=== PATIENT | male | born 1935 | race Caucasian/White ===

== ENCOUNTER 2016-07-27 07:45 | Emergency (ER) | payer MEDICARE, BC ==
[~2016-07-27] VITALS: Ht 180.3 cm; Wt 76.0 kg
[~2016-07-27 07:45] MED LIST: ALLE24TA PO; ASPI81; FISH1000; GARL500C2 PO; GLUC10TA3 PO; GLUC750T22 PO; LOSA25 PO; NIAC500T5 PO; PRED50 PO; TAB-TAB; ZOVI800T13 PO; [UNRECOGNIZED DRUG - CODE] PO
[2016-07-27 07:52] VITALS: BP 115/66; PULSE 82; RESP 18; TEMP 97.9; O2SAT 98
[2016-07-27] MEDS ORDERED: GLIP5TAB8 PO (08:06)
[2016-07-27] MEDS ORDERED: LOSA25TA PO (08:06)
[2016-07-27] MEDS ORDERED: SPIRCAP INH (08:06)
[2016-07-27] MEDS ORDERED: GLIP10TA6 PO (08:06)
[2016-07-27] MEDS ORDERED: SYMB80AE INH (08:07)
[2016-07-27] MEDS ORDERED: NIAC50TA4 PO (08:08)
[2016-07-27] MEDS ORDERED: SODIUM CHLORIDE 0.9% FLUSH 5 ML FLUSH IVF PRN (08:15)
[2016-07-27] MEDS ORDERED: methylPREDNISolone SOD SUCC 125 MG/2 ML VIAL IVP ONE (08:15)
--- NOTE | 2016-07-27 08:18 | PD ---
HPI Chief Complaint: Respiratory Symptoms Time Seen by Provider: 08:08 Travel History International Travel<30 days: No Contact w/Intl Traveler<30days: No Traveled to known affect area: No History of Present Illness HPI 81yo M with PMH of COPD presents to the ED with c/o productive cough for 2 days. States he felt sob since last night and it feels like his COPD. Pt states he normally gets better with some steroids and treatments. Denies any intubation in the past. Denies any fever, chest pain, n/v, abdominal pain, weakness or numbness. Pt takes symbicort and spiriva and does pulmonary rehab. Former cig smoker. PFSH Past Medical History Asthma: Yes Heart Rhythm Problems: Yes Cardiovascular Problems: Yes ([place]) COPD: Yes Diabetes: Yes Patient Takes Glucophage: No Diminished Hearing: No Hypertension: Yes Respiratory: Yes (CHRONIC BRONCHITIS) Immunizations Current: Yes Myocardial Infarction: Yes (1973) Past Surgical History Appendectomy: Yes Other Surgery: Yes (RT THUMB TRIGGER FINGER REPAIR) Social History Alcohol Use: No Tobacco Use: No (QUIT 8 YEARS AGO) Substance Use: No Allergies-Medications (Allergen,Severity, Reaction): Coded Allergies: Penicillin (Verified Allergy, Severe, swelling , 07/27/16) Reported Meds & Prescriptions Reported Meds & Active Scripts Active Reported Niacin 50 Mg Tab 50 Mg PO DAILY Symbicort Inh (Budesonide/Formoterol Fumarate) 80-4.5 Mcg/Act Aero 2 Puff INH Q12HR Spiriva Handihaler (Tiotropium Inh) 18 Mcg Cap 18 Mcg INH DAILY 1 capsule = 18 mcg Losartan (Losartan Potassium) 25 Mg Tab 12.5 Mg PO DAILY Glipizide 10 Mg Tab 10 Mg PO DAILY Take 30 minutes before a meal Glipizide 5 Mg Tab 5 Mg PO HS Take 30 minutes before a meal Review of Systems Except as stated in HPI: all other systems reviewed are Neg Physical Exam Narrative GENERAL: 81yo M not in distress. SKIN: Warm and dry. HEAD: Atraumatic. Normocephalic. EYES: Pupils equal and round. No scleral icterus. No injection or drainage. ENT: No nasal bleeding or discharge. Mucous membranes pink and moist. NECK: Trachea midline. No JVD. CARDIOVASCULAR: Regular rate and rhythm. No murmur appreciated. RESPIRATORY: No accessory muscle use. Expiratory wheezing bilaterally. Speaking in complete sentences. GASTROINTESTINAL: Abdomen soft, non-tender, nondistended. Hepatic and splenic margins not palpable. MUSCULOSKELETAL: No obvious deformities. No clubbing. No cyanosis. No edema. No calf tenderness. NEUROLOGICAL: Awake and alert. No obvious cranial nerve deficits. Motor grossly within normal limits. Normal speech. PSYCHIATRIC: Appropriate mood and affect; insight and judgment normal. Data Data Last Documented VS Vital Signs Date Time Temp Pulse Resp B/P Pulse Ox O2 Delivery O2 Flow Rate FiO2 07/27/16 09:36 98 07/27/16 08:25 Room Air 07/27/16 07:52 97.9 82 18 115/66 Orders Complete Blood Count With Diff (07/27/16 08:13) Basic Metabolic Panel (Bmp) (07/27/16 08:13) Magnesium (Mg) (07/27/16 08:13) Troponin I (07/27/16 08:13) Iv Access Insert/Monitor (07/27/16 08:13) Electrocardiogram (07/27/16 08:13) Ecg Monitoring (07/27/16 08:13) Oximetry (07/27/16 08:13) Oxygen Administration (07/27/16 08:13) Chest, Single Ap (07/27/16 08:13) Sodium Chloride 0.9% Flush (Ns Flush) (07/27/16 08:15) Methylprednisolone So Succ Inj (Solumedr (07/27/16 08:15) Albuterol-Ipratropium Neb (Duoneb Neb) (07/27/16 08:15) Levofloxacin 750 Mg Premix Inj (Levaquin (07/27/16 09:45) Labs Laboratory Tests Test 07/27/16 08:26 White Blood Count 6.8 TH/MM3 Red Blood Count 3.84 MIL/MM3 Hemoglobin 12.1 GM/DL Hematocrit 35.7 % Mean Corpuscular Volume 93.0 FL Mean Corpuscular Hemoglobin 31.4 PG Mean Corpuscular Hemoglobin 33.7 % Concent Red Cell Distribution Width 13.6 % Platelet Count 167 TH/MM3 Mean Platelet Volume 7.6 FL Neutrophils (%) (Auto) 82.8 % Lymphocytes (%) (Auto) 9.3 % Monocytes (%) (Auto) 5.5 % Eosinophils (%) (Auto) 0.2 % Basophils (%) (Auto) 2.2 % Neutrophils # (Auto) 5.7 TH/MM3 Lymphocytes # (Auto) 0.6 TH/MM3 Monocytes # (Auto) 0.4 TH/MM3 Eosinophils # (Auto) 0.0 TH/MM3 Basophils # (Auto) 0.1 TH/MM3 CBC Comment DIFF FINAL Differential Comment Sodium Level 141 MEQ/L Potassium Level 4.0 MEQ/L Chloride Level 102 MEQ/L Carbon Dioxide Level 28.9 MEQ/L Anion Gap 10 MEQ/L Blood Urea Nitrogen 20 MG/DL Creatinine 1.10 MG/DL Estimat Glomerular Filtration 64 ML/MIN Rate Random Glucose 224 MG/DL Calcium Level 8.7 MG/DL Magnesium Level 1.9 MG/DL Troponin I LESS THAN 0.02 NG/ML MDM Medical Decision Making Medical Screen Exam Complete: Yes Emergency Medical Condition: Yes Interpretation(s) EKG: NSR 95bpm. Poor baseline. RBBB. Low voltage. Laboratory Tests Test 07/27/16 08:26 White Blood Count 6.8 TH/MM3 (4.0-11.0) Red Blood Count 3.84 MIL/MM3 (4.50-5.90) Hemoglobin 12.1 GM/DL (13.0-17.0) Hematocrit 35.7 % (39.0-51.0) Mean Corpuscular Volume 93.0 FL (80.0-100.0) Mean Corpuscular Hemoglobin 31.4 PG (27.0-34.0) Mean Corpuscular Hemoglobin 33.7 % Concent (32.0-36.0) Red Cell Distribution Width 13.6 % (11.6-17.2) Platelet Count 167 TH/MM3 (150-450) Mean Platelet Volume 7.6 FL (7.0-11.0) Neutrophils (%) (Auto) 82.8 % (16.0-70.0) Lymphocytes (%) (Auto) 9.3 % (9.0-44.0) Monocytes (%) (Auto) 5.5 % (0.0-8.0) Eosinophils (%) (Auto) 0.2 % (0.0-4.0) Basophils (%) (Auto) 2.2 % (0.0-2.0) Neutrophils # (Auto) 5.7 TH/MM3 (1.8-7.7) Lymphocytes # (Auto) 0.6 TH/MM3 (1.0-4.8) Monocytes # (Auto) 0.4 TH/MM3 (0-0.9) Eosinophils # (Auto) 0.0 TH/MM3 (0-0.4) Basophils # (Auto) 0.1 TH/MM3 (0-0.2) CBC Comment DIFF FINAL Differential Comment Sodium Level 141 MEQ/L (136-145) Potassium Level 4.0 MEQ/L (3.5-5.1) Chloride Level 102 MEQ/L (98-107) Carbon Dioxide Level 28.9 MEQ/L (21.0-32.0) Anion Gap 10 MEQ/L (5-15) Blood Urea Nitrogen 20 MG/DL (7-18) Creatinine 1.10 MG/DL (0.60-1.30) Estimat Glomerular Filtration 64 ML/MIN (>89) Rate Random Glucose 224 MG/DL (74-106) Calcium Level 8.7 MG/DL (8.5-10.1) Magnesium Level 1.9 MG/DL (1.5-2.5) Troponin I LESS THAN 0.02 NG/ML (0.02-0.05) Last Impressions Chest X-Ray 07/27/16 0813 Signed Impressions: Service Date/Time: Wednesday, July 27, 2016 08:21 - CONCLUSION: Mild left base consolidation. Gerardo Olivia MD Differential Diagnosis COPD exacerbation vs. Pneumonia vs. Bronchitis vs. atypical ACS Narrative Course 81yo M well appearing here with sob that feels like his COPD. Pt with end expiratory wheezing but speaking incomplete sentences. Labs reviewed, no leukocytosis. H/H low at 12.1/35.7, similar to 3 years ago. Troponin negative. Glucose elevated at 224. No increased anion gap. Normal CO2. BUN mildly elevated. CXR showed mild right base consolidation. Pt given levafloxacin 750mg IV. Pt also give duonebs x3 and methylprednisolone 125mg IV. Pt reevaluated at bedside and states that sob has resolved. Pt is speaking in complete sentences with no retractions. Saturating at 98% on RA. Pt wants to try outpatient treatment with antibiotics first and will call his PMD to follow up. Strict return precautions given. Diagnosis Primary Impression: Community acquired pneumonia Patient Instructions: General Instructions Departure Forms: Tests/Procedures Additional Instructions: Please follow up with your PMD in 1-2 days. Return to the ED if you have any chest pain, sob, fever, vomiting or any other concerning symptoms. Med/Other Pt SpecificInfo: Prescription(s) given Scripts Albuterol 18 GM Inh (Ventolin Hfa 18 GM Inh)90 Mcg/Act Aer2 Puff INH Q4H PRN ( SHORTNESS OF BREATH) #1 INHALER Ref 0 Prov:Shara Bee DO 07/27/16 Prednisone 20 Mg Tab20 Mg PO BID 5 Days Ref 0 Prov:Shara Bee DO 07/27/16 Levofloxacin (Levaquin)750 Mg [id number] Mg PO DAILY 5 Days Ref 0 Prov:Shara Bee DO 07/27/16 Disposition: 01 DISCHARGE HOME Condition: Stable Shara Bee DO Jul 27, 2016 08:18
[2016-07-27] MEDS: RESP: ALBUTEROL 2.5 MG/IPRATROPIUM 0.5 MG NEB (SCH) INH (08:21)
[2016-07-27 08:25] VITALS: O2SAT 98
[2016-07-27 08:37] LABS: AUTOMATED NEUTROPHIL # 5.7 TH/MM3 (1.8-7.7); BASOPHIL # 0.1 TH/MM3 (0-0.2); BASOPHIL % 2.2 % (0.0-2.0); EOSINOPHIL % 0.2 % (0.0-4.0); HEMATOCRIT 35.7 % (39.0-51.0); HEMO FLAGS DIFF FINAL; LYMPH % 9.3 % (9.0-44.0); LYMPHOCYTE # 0.6 TH/MM3 (1.0-4.8); MEAN CORPUSCULAR HEMOGLOBIN 31.4 PG (27.0-34.0); MEAN CORPUSCULAR HGB CONC 33.7 % (32.0-36.0); MONO % 5.5 % (0.0-8.0); NEUT % 82.8 % (16.0-70.0); PLATELET COUNT 167 TH/MM3 (150-450); RED BLOOD COUNT 3.84 MIL/MM3 (4.50-5.90); RED CELL DISTRIBUTION WIDTH 13.6 % (11.6-17.2); WHITE BLOOD COUNT 6.8 TH/MM3 (4.0-11.0)
--- NOTE | 2016-07-27 08:38 | RADHPO ---
EXAM DATE/TIME: 07/27/2016 08:21 [facility] COMPARISON: 07/26/2013. INDICATIONS : Cough, short of breath MEDICAL HISTORY : Chronic obstructive pulmonary disease. SURGICAL HISTORY : None. ENCOUNTER: Initial ACUITY: 3 days PAIN SCORE: 0/10 LOCATION: Bilateral chest FINDINGS: Mild infiltrates in right lung base. No pleural effusion. No pneumothorax. No Heart size stable, within normal limits. Thoracic aorta is tortuous. CONCLUSION: Mild left base consolidation. Gerardo Olivia MD on July 27, 2016 at 8:36 Board Certified Radiologist. This report was verified electronically.
[2016-07-27 08:46] LABS: CHLORIDE 102 MEQ/L (98-107); SODIUM (NA) 141 MEQ/L (136-145)
[2016-07-27 08:49] LABS: ANION GAP 10 MEQ/L (5-15); BICARBONATE 28.9 MEQ/L (21.0-32.0); BLOOD UREA NITROGEN 20 MG/DL (7-18); MAGNESIUM 1.9 MG/DL (1.5-2.5)
[2016-07-27 08:53] LABS: GLOMERULAR FILTRATION RATE 64 ML/MIN (>89)
[2016-07-27] MEDS ORDERED: LEVOFLOXACIN 750 MG PREMIX INJ 150 ML IV ONE (09:45)
[2016-07-27] MEDS ORDERED: LEVA750T PO (10:03)
[2016-07-27] MEDS ORDERED: PRED20 PO (10:03)
[2016-07-27] MEDS ORDERED: VENTAER INH (10:03)
[2016-07-27 10:57] VITALS: BP 102/54; PULSE 95; RESP 18; O2SAT 96
--- NOTE | 2016-07-28 12:40 | EKG ---
Date Performed: 07/27/2016 Time Performed: 08:46:58 PTAGE: 81 years EKG: Atrial fibrillation Left axis deviation RBBB with left anterior fascicular block Lateral ST elevation - possible early repolarization Low QRS voltages in precordial leads Abnormal ECG Compared to prior tracing no significant change PREVIOUS TRACING : 07/26/2013 21.16 DOCTOR: Alex Jacob Interpretating Date/Time 07/28/2016 12:36:11
== END 2016-07-27 11:35 | disposition home or self-care (01) ==
LOC: PHED 07:45
DX: J18.9 Pneumonia, unspecified organism (principal); J45.909 Unspecified asthma, uncomplicated; J44.9 Chronic obstructive pulmonary disease, unspecified; I10 Essential (primary) hypertension; I25.2 Old myocardial infarction; I48.91 Unspecified atrial fibrillation; E11.9 Type 2 diabetes mellitus without complications; Z79.84 Long term (current) use of oral hypoglycemic drugs; Z87.891 Personal history of nicotine dependence
CPT/HCPCS: 71010; 80048; 83735; 84484; 85025; 93005; 94640; 94664; 96365; 96375; 99284; J1956; J2930

== ENCOUNTER 2016-07-29 10:37 | Emergency (ER) | payer MEDICARE, BC ==
[~2016-07-29] VITALS: Ht 180.3 cm; Wt 75.7 kg
[~2016-07-29 10:37] MED LIST changes: -ALLE24TA PO; -ASPI81; -FISH1000; -GARL500C2 PO; +GLIP10TA6 PO; +GLIP5TAB8 PO; -GLUC10TA3 PO; -GLUC750T22 PO; +LEVA750T PO; -LOSA25 PO; +LOSA25TA PO; -NIAC500T5 PO; +NIAC50TA4 PO; +PRED20 PO; -PRED50 PO; +SPIRCAP INH; +SYMB80AE INH; -TAB-TAB; +VENTAER INH; -ZOVI800T13 PO; -[UNRECOGNIZED DRUG - CODE] PO
[2016-07-29 10:53] VITALS: BP 108/64; PULSE 77; RESP 18; TEMP 97.9; O2SAT 94
--- NOTE | 2016-07-29 11:50 | PD ---
HPI Chief Complaint: Respiratory Symptoms Time Seen by Provider: 11:35 Travel History International Travel<30 days: No Contact w/Intl Traveler<30days: No Traveled to known affect area: No History of Present Illness HPI This is an 81-year-old male with a history of COPD who presents to the emergency department with 5 days of chest tightness and congestion, moderate severity, constant, not improving despite being on a course of prednisone, using bronchodilators and starting Levaquin 2 days ago. He was seen in the emergency department 2 nights ago and was diagnosed with a possible left lower lobe pneumonia. He says he was feeling okay yesterday but this morning he woke up and he was very short of breath and had some right sided flank pain which is unusual for him. He says he feels better now. He says he's had episodes of pneumonia in the past but he's never felt this dyspneic in the past. PFSH Past Medical History Asthma: Yes Heart Rhythm Problems: Yes Cardiovascular Problems: Yes ([place]) COPD: Yes Diabetes: Yes Patient Takes Glucophage: Yes Diminished Hearing: No Hypertension: Yes Respiratory: Yes (CHRONIC BRONCHITIS, PNEUMONIA) Immunizations Current: Yes Myocardial Infarction: Yes (1973) Pneumonia: Yes Tetanus Vaccination: > 5 Years Influenza Vaccination: No Past Surgical History Appendectomy: Yes Other Surgery: Yes (RT THUMB TRIGGER FINGER REPAIR) Social History Alcohol Use: No Tobacco Use: No (QUIT 8 YEARS AGO) Substance Use: No Allergies-Medications (Allergen,Severity, Reaction): Coded Allergies: Penicillin (Verified Allergy, Severe, swelling , 07/29/16) Reported Meds & Prescriptions Reported Meds & Active Scripts Active Ventolin Hfa 18 GM Inh (Albuterol Sulfate) 90 Mcg/Act Aer 2 Puff INH Q4H PRN Prednisone 20 Mg Tab 20 Mg PO BID 5 Days Levaquin (Levofloxacin) 750 Mg Tab 750 Mg PO DAILY 5 Days Reported Niacin 50 Mg Tab 50 Mg PO DAILY Symbicort Inh (Budesonide/Formoterol Fumarate) 80-4.5 Mcg/Act Aero 2 Puff INH Q12HR Spiriva Handihaler (Tiotropium Inh) 18 Mcg Cap 18 Mcg INH DAILY 1 capsule = 18 mcg Losartan (Losartan Potassium) 25 Mg Tab 12.5 Mg PO DAILY Glipizide 10 Mg Tab 10 Mg PO DAILY Take 30 minutes before a meal Glipizide 5 Mg Tab 5 Mg PO HS Take 30 minutes before a meal Review of Systems Except as stated in HPI: all other systems reviewed are Neg Physical Exam Narrative GENERAL:Well appearing, no acute distress SKIN: Warm and dry. HEAD: Atraumatic. Normocephalic. EYES: Pupils equal and round. No injection or drainage. ENT: Moist mucous membranes NECK: Trachea midline. CARDIOVASCULAR: Rales and expiratory wheezing worse in the right lower lung base. No murmur appreciated. RESPIRATORY: Clear to auscultation. Breath sounds equal bilaterally. GASTROINTESTINAL: Abdomen soft, non-tender, nondistended. MUSCULOSKELETAL: No obvious deformities. NEUROLOGICAL: Awake and alert. No obvious cranial nerve deficits. Moving all extremities. PSYCHIATRIC: Appropriate mood and affect; insight and judgment normal. Data Data Last Documented VS Vital Signs Date Time Temp Pulse Resp B/P Pulse Ox O2 Delivery O2 Flow Rate FiO2 07/29/16 11:45 95 93 Room Air 07/29/16 10:53 97.9 18 108/[address] Pulmonary Angiogram (07/29/16 ) Troponin I (07/29/16 11:46) Iohexol 350 Inj (Omnipaque 350 Inj) (07/29/16 12:15) Labs Laboratory Tests Test 07/29/16 11:55 Troponin I LESS THAN 0.02 NG/ML MDM Medical Decision Making Medical Screen Exam Complete: Yes Emergency Medical Condition: Yes Interpretation(s) Troponin is negative CT pulmonary angiogram demonstrates emphysema but no pulmonary embolism or pneumonia Differential Diagnosis Pneumonia, pulmonary embolism, COPD exacerbation Narrative Course This is an 81-year-old male who presents to the emergency department with increasing shortness of breath that occurred this morning. Currently he feels much better. He was just seen yesterday in the setting of possible pneumonia and COPD exacerbation. I elected to perform a CT pulmonary angiogram given the patient described his symptoms as different from prior. He has no evidence of pulmonary embolism or pneumonia on CT. He is very well-appearing and I think he can be discharged home and doesn't require any further acute intervention. He should continue his outpatient antibiotics and prednisone. Diagnosis Primary Impression: COPD (chronic obstructive pulmonary disease) Qualified Code: J43.9 - Pulmonary emphysema, unspecified emphysema type Patient Instructions: General Instructions Additional Instructions: If you develop severe shortness of breath, chest pain, or difficulty breathing return to the emergency department. Use albuterol every 4 hours for the next 2 days. Then use as needed for wheezing. Complete your course of steroids. Complete your course of antibiotics. Follow up with your primary care physician in 2-3 days if your symptoms have not improved. Med/Other Pt SpecificInfo: No Change to Meds Disposition: 01 DISCHARGE HOME Condition: Stable Britt Seay MD Jul 29, 2016 11:50 Britt Seay MD Jul 29, 2016 11:50
[2016-07-29] MEDS ORDERED: IOHEXOL 350 MG/ML 10 ML VIAL (for RAD DIAG) IV ONE (12:15)
--- NOTE | 2016-07-29 12:46 | RADHPO ---
EXAM DATE/TIME: 07/29/2016 12:05 [facility] COMPARISON: No previous studies available for comparison. INDICATIONS : Cough, short of breath. Evaluate for pulmonary embolism. IV CONTRAST: 65 cc Omnipaque 350 (iohexol) IV RADIATION DOSE: 13.72 CTDIvol (mGy) MEDICAL HISTORY : Cardiovascular disease. Hypertension. Chronic obstructive pulmonary disease.Diabetes. SURGICAL HISTORY : Appendectomy. Orthopedic surgery. ENCOUNTER: Initial ACUITY: 3 days PAIN SCALE: 0/10 LOCATION: chest TECHNIQUE: Volumetric scanning of the chest was performed using a pulmonary embolism protocol MIP images were re constructed. Using automated exposure control and adjustment of the mA and/or kV according to patien t size, radiation dose was kept as low as reasonably achievable to obtain optimal diagnostic quality images. FINDINGS: PULMONARY ARTERIES: No filling defects are seen in the pulmonary arteries through the segmental level. LUNGS: There is no consolidation or pneumothorax . No concerning pulmonary nodule is visualized. PLEURAE: There is no pleural thickening or pleural effusion. MEDIASTINUM: There is good visualization of the great vessels of the middle mediastinum. No evidence of mediastin al or hilar adenopathy/mass. MUSCULOSKELETAL: Within normal limits for patient age. MISCELLANEOUS: The visualized upper abdominal organs demonstrate no acute abnormality. CONCLUSION: Normal examination with diffuse emphysema. Gallstones in a noninflamed gallbladder Suman Adams MD on July 29, 2016 at 12:44 Board Certified Radiologist. This report was verified electronically.
[2016-07-29 13:03] VITALS: BP 115/60; PULSE 68; RESP 17; O2SAT 96
== END 2016-07-29 13:10 | disposition home or self-care (01) ==
LOC: PHED 10:37
DX: J44.9 Chronic obstructive pulmonary disease, unspecified (principal); J45.909 Unspecified asthma, uncomplicated; E11.9 Type 2 diabetes mellitus without complications; I10 Essential (primary) hypertension; I25.2 Old myocardial infarction; Z79.4 Long term (current) use of insulin; Z87.891 Personal history of nicotine dependence
CPT/HCPCS: 71275; 84484; 99285; Q9967

== ENCOUNTER 2016-08-03 14:55 | Inpatient (IN) | payer MEDICARE, BC ==
[~2016-08-03] VITALS: Ht 180.3 cm; Wt 73.1 kg
[2016-08-03] VITALS (9 sets, daily range): BP systolic 100–143; BP diastolic 53–77; PULSE 92–98; RESP 16–20; TEMP 96.3–98.4; O2SAT 88–96
[2016-08-03] MEDS ORDERED: methylPREDNISolone SOD SUCC 125 MG/2 ML VIAL IVP ONE (15:15)
[2016-08-03] MEDS ORDERED: SODIUM CHLORIDE 0.9% FLUSH 5 ML FLUSH IVF PRN (15:15)
--- NOTE | 2016-08-03 15:15 | PD ---
HPI Chief Complaint: Respiratory Symptoms Time Seen by Provider: 15:02 Travel History International Travel<30 days: No Contact w/Intl Traveler<30days: No Traveled to known affect area: No History of Present Illness HPI 81-year-old male with history of COPD here for evaluation of shortness of breath and cough. The patient was seen on 07/27/16 and diagnosed with a mild left base consolidation. He was started on Levaquin and prednisone after clinical improvement in the emergency department with nebulized treatments. He return to the emergency department on 07/29/[address] pulmonary angiogram performed which showed diffuse emphysema, otherwise normal exam, no PE. The patient finished his course of steroids and Levaquin 2 days ago. He was seen by his primary care physician's nurse practitioner who started him on ipratropium/albuterol. The patient reports that for the last several days upon waking up he has felt short of breath. He has had a cough that is nonproductive. No hemoptysis. He is also complaining of some chest tightness, which he has had every day for the last week. No fevers or chills. PFSH Past Medical History Asthma: Yes Heart Rhythm Problems: Yes Cardiovascular Problems: Yes ([place]) COPD: Yes Diabetes: Yes Patient Takes Glucophage: No Diminished Hearing: No Hypertension: Yes Respiratory: Yes (COPD) Immunizations Current: Yes Myocardial Infarction: Yes (1974) Pneumonia: Yes Tetanus Vaccination: Unknown Past Surgical History Appendectomy: Yes Other Surgery: Yes (RT THUMB TRIGGER FINGER REPAIR) Social History Alcohol Use: No Tobacco Use: No (QUIT 8 YEARS AGO) Substance Use: No Allergies-Medications (Allergen,Severity, Reaction): Coded Allergies: Penicillin (Verified Allergy, Severe, swelling , 08/03/16) Reported Meds & Prescriptions Reported Meds & Active Scripts Active Ventolin Hfa 18 GM Inh (Albuterol Sulfate) 90 Mcg/Act Aer 2 Puff INH Q4H PRN Prednisone 20 Mg Tab 20 Mg PO BID 5 Days Levaquin (Levofloxacin) 750 Mg Tab 750 Mg PO DAILY 5 Days Reported Niacin 50 Mg Tab 50 Mg PO DAILY Symbicort Inh (Budesonide/Formoterol Fumarate) 80-4.5 Mcg/Act Aero 2 Puff INH Q12HR Spiriva Handihaler (Tiotropium Inh) 18 Mcg Cap 18 Mcg INH DAILY 1 capsule = 18 mcg Losartan (Losartan Potassium) 25 Mg Tab 12.5 Mg PO DAILY Glipizide 10 Mg Tab 10 Mg PO DAILY Take 30 minutes before a meal Glipizide 5 Mg Tab 5 Mg PO HS Take 30 minutes before a meal Review of Systems Except as stated in HPI: all other systems reviewed are Neg Physical Exam Narrative GENERAL: Well-developed, well-nourished, no acute distress. Speaking full sentences. SKIN: Warm and dry. HEAD: Atraumatic. Normocephalic. EYES: Pupils equal and round. No scleral icterus. No injection or drainage. ENT: Mucous membranes pink and moist. NECK: Trachea midline. No JVD. CARDIOVASCULAR: Regular rate and rhythm. RESPIRATORY: No accessory muscle use. Speaking full sentences. Coarse breath sounds bilaterally with poor air movement bilaterally. GASTROINTESTINAL: Abdomen soft, non-tender, nondistended. MUSCULOSKELETAL: No obvious deformities. No clubbing. No cyanosis. No edema. NEUROLOGICAL: Awake and alert. No obvious cranial nerve deficits. Motor grossly within normal limits. Normal speech. PSYCHIATRIC: Appropriate mood and affect; insight and judgment normal. Data Data Last Documented VS Vital Signs Date Time Temp Pulse Resp B/P Pulse Ox O2 Delivery O2 Flow Rate FiO2 08/03/16 16:11 95 16 113/55 90 Room Air 08/03/16 15:26 2.00 08/03/16 15:01 98.2 Orders Complete Blood Count With Diff (08/03/16 15:09) Comprehensive Metabolic Panel (08/03/16 15:09) B-Type Natriuretic Peptide (08/03/16 15:09) Act Partial Throm Time (Ptt) (08/03/16 15:09) Prothrombin Time / Inr (Pt) (08/03/16 15:09) Ckmb (Isoenzyme) Profile (08/03/16 15:09) Troponin I (08/03/16 15:09) Influenzae A/B Antigen (08/03/16 15:09) Blood Culture (08/03/16 15:09) Iv Access Insert/Monitor (08/03/16 15:09) Electrocardiogram (08/03/16 15:09) Ecg Monitoring (08/03/16 15:09) Oximetry (08/03/16 15:09) Oxygen Administration (08/03/16 15:09) Chest, Single Ap (08/03/16 15:09) Sodium Chloride 0.9% Flush (Ns Flush) (08/03/16 15:15) Methylprednisolone So Succ Inj (Solumedr (08/03/16 15:15) Albuterol-Ipratropium Neb (Duoneb Neb) (08/03/16 15:15) Labs Laboratory Tests Test 08/03/16 15:10 White Blood Count 13.1 TH/MM3 Red Blood Count 4.29 MIL/MM3 Hemoglobin 13.1 GM/DL Hematocrit 39.6 % Mean Corpuscular Volume 92.3 FL Mean Corpuscular Hemoglobin 30.5 PG Mean Corpuscular Hemoglobin 33.1 % Concent Red Cell Distribution Width 13.4 % Platelet Count 197 TH/MM3 Mean Platelet Volume 7.6 FL Neutrophils (%) (Auto) 75.4 % Lymphocytes (%) (Auto) 13.3 % Monocytes (%) (Auto) 8.1 % Eosinophils (%) (Auto) 0.6 % Basophils (%) (Auto) 2.6 % Neutrophils # (Auto) 9.9 TH/MM3 Lymphocytes # (Auto) 1.7 TH/MM3 Monocytes # (Auto) 1.1 TH/MM3 Eosinophils # (Auto) 0.1 TH/MM3 Basophils # (Auto) 0.3 TH/MM3 CBC Comment DIFF FINAL Differential Comment Prothrombin Time 10.0 SEC Prothromb Time International 0.9 RATIO Ratio Activated Partial 24.9 SEC Thromboplast Time Sodium Level 137 MEQ/L Potassium Level 4.6 MEQ/L Chloride Level 100 MEQ/L Carbon Dioxide Level 28.3 MEQ/L Anion Gap 9 MEQ/L Blood Urea Nitrogen 30 MG/DL Creatinine 1.20 MG/DL Estimat Glomerular Filtration 58 ML/MIN Rate Random Glucose 196 MG/DL Calcium Level 8.6 MG/DL Total Bilirubin 0.7 MG/DL Aspartate Amino Transf 14 U/L (AST/SGOT) Alanine Aminotransferase 24 U/L (ALT/SGPT) Alkaline Phosphatase 97 U/L Total Creatine Kinase 31 U/L Troponin I LESS THAN 0.02 NG/ML B-Type Natriuretic Peptide 59 PG/ML Total Protein 6.8 GM/DL Albumin 3.1 GM/DL [facility] Medical Decision Making Medical Screen Exam Complete: Yes Emergency Medical Condition: Yes Medical Record Reviewed: Yes Differential Diagnosis COPD exacerbation, bronchitis, pneumonia, pneumothorax, pulmonary edema, pulmonary effusion Narrative Course Initial vital signs show heart rate 96, blood pressure 123/65, pulse ox 88% on room air, oral temp of 98.2F. CBC shows WBC 13.1, hemoglobin 13.1, hematocrit 39.6, platelets 197, neutrophils 75%. CMP is remarkable for random glucose 196, BUN 30, creatinine 1.2, GFR 58, otherwise unremarkable. Cardiac enzymes are negative. BNP is 95. Influenza is negative. Chest x-ray: No acute disease. The patient was given 3 DuoNeb treatments, IV Solu-Medrol, and on reassessment reports some improvement in respiratory symptoms. He still feels short of breath. His O2 saturation is 89% on room air. He is speaking full sentences however and is not using accessory muscles to breathe. This is his third visit for upper respiratory symptoms since 07/27/16. Case was discussed with the patient's primary care physician Dr. Cheatham who will admit the patient to her service for COPD exacerbation. Diagnosis Primary Impression: COPD exacerbation Joshua Bruner MD Aug 03, 2016 15:15
[2016-08-03] MEDS: RESP: ALBUTEROL 2.5 MG/IPRATROPIUM 0.5 MG NEB (SCH) INH ×2 (15:23→15:24)
[2016-08-03 15:27] LABS: AUTOMATED NEUTROPHIL # 9.9 TH/MM3 (1.8-7.7); BASOPHIL # 0.3 TH/MM3 (0-0.2); BASOPHIL % 2.6 % (0.0-2.0); EOSINOPHIL # 0.1 TH/MM3 (0-0.4); EOSINOPHIL % 0.6 % (0.0-4.0); HEMATOCRIT 39.6 % (39.0-51.0); LYMPH % 13.3 % (9.0-44.0); LYMPHOCYTE # 1.7 TH/MM3 (1.0-4.8); MEAN CELL VOLUME 92.3 FL (80.0-100.0); MEAN CORPUSCULAR HEMOGLOBIN 30.5 PG (27.0-34.0); MEAN CORPUSCULAR HGB CONC 33.1 % (32.0-36.0); MONO % 8.1 % (0.0-8.0); NEUT % 75.4 % (16.0-70.0); PLATELET COUNT 197 TH/MM3 (150-450); RED BLOOD COUNT 4.29 MIL/MM3 (4.50-5.90); RED CELL DISTRIBUTION WIDTH 13.4 % (11.6-17.2); WHITE BLOOD COUNT 13.1 TH/MM3 (4.0-11.0)
[2016-08-03 15:28] LABS: HEMO FLAGS DIFF FINAL
[2016-08-03 15:31] LABS: CHLORIDE 100 MEQ/L (98-107); POTASSIUM 4.6 MEQ/L (3.5-5.1); SODIUM (NA) 137 MEQ/L (136-145)
[2016-08-03 15:34] LABS: ANION GAP 9 MEQ/L (5-15); BICARBONATE 28.3 MEQ/L (21.0-32.0); BLOOD UREA NITROGEN 30 MG/DL (7-18)
[2016-08-03 15:35] LABS: APTT (PATIENT) 24.9 SEC (24.3-30.1); INTERNATIONAL NORMALIZED RATIO 0.9 RATIO
[2016-08-03 15:37] LABS: ALT (GPT) 24 U/L (12-78); AST (GOT) 14 U/L (15-37); GLOMERULAR FILTRATION RATE 58 ML/MIN (>89)
[2016-08-03 15:39] LABS: TOTAL BILIRUBIN ADULT 0.7 MG/DL (0.2-1.0)
[2016-08-03 15:40] LABS: ALKALINE PHOSPHATASE 97 U/L (45-117)
[2016-08-03 15:48] LABS: CREATINE KINASE 31 U/L (39-308)
--- NOTE | 2016-08-03 15:53 | RADHPO ---
EXAM DATE/TIME: 08/03/2016 15:32 [facility] COMPARISON: No previous studies available for comparison. INDICATIONS : Short of breath MEDICAL HISTORY : Chronic obstructive pulmonary disease. SURGICAL HISTORY : None. ENCOUNTER: Initial ACUITY: 1 day PAIN SCORE: 0/10 LOCATION: Bilateral chest FINDINGS: A single view of the chest demonstrates the lungs to be symmetrically aerated without evidence of mas s, infiltrate or effusion. The cardiomediastinal contours are unremarkable. Osseous structures are intact. CONCLUSION: No acute disease. Jabier Savage MD on August 03, 2016 at 15:51 Board Certified Radiologist. This report was verified electronically.
[2016-08-03] MEDS ORDERED: AZITHROMYCIN INJ 500 MG in SODIUM CHLOR 0.9% 250 ML INJ 250 ML IV ONE (16:30)
[2016-08-03] MEDS ORDERED: RESP: ALBUTEROL 2.5 MG/IPRATROPIUM 0.5 MG NEB (PRN) NEB (16:45)
[2016-08-03] MEDS ORDERED: SENNOSIDES 8.6 MG TAB PO PRN (16:45)
[2016-08-03] MEDS ORDERED: ACETAMINOPHEN 325 MG TAB PO PRN (16:45)
[2016-08-03] MEDS ORDERED: guaiFENesin/CODEINE SYRUP 200 MG/20 MG/10 ML CUP PO PRN (16:45)
[2016-08-03] MEDS ORDERED: SODIUM CHLORIDE 0.9% FLUSH 5 ML FLUSH FLUSH PRN (16:45)
[2016-08-03] MEDS ORDERED: NALOXONE HCL 0.4 MG/ML AMP IV PRN (16:45)
[2016-08-03] MEDS: ENOXAPARIN SODIUM 40 MG/0.4 ML SYRINGE SQ SCH (17:26)
[2016-08-03] MEDS: SODIUM CHLORIDE 0.9% FLUSH 5 ML FLUSH FLUSH SCH (20:52)
[2016-08-03] MEDS: methylPREDNISolone SOD SUCC 125 MG/2 ML VIAL IV PUSH SCH (20:53)
[2016-08-03] MEDS: glipiZIDE 5 MG TAB PO SCH (20:53)
[2016-08-03] MEDS: BUDESONIDE-FORMOTEROL 80/4.5 MCG INHALER INH SCH (20:53)
[2016-08-04] VITALS (9 sets, daily range): BP systolic 91–117; BP diastolic 60–73; PULSE 75–95; RESP 18–20; TEMP 96–98.9; O2SAT 94–97
[2016-08-04] MEDS: NIACIN 100 MG TAB PO SCH (08:47)
[2016-08-04] MEDS: methylPREDNISolone SOD SUCC 125 MG/2 ML VIAL IV PUSH SCH ×2 (08:48→22:53)
[2016-08-04] MEDS: glipiZIDE 10 MG TAB PO SCH (08:48)
[2016-08-04] MEDS: LOSARTAN 25 MG TAB PO SCH (08:48)
[2016-08-04] MEDS: BUDESONIDE-FORMOTEROL 80/4.5 MCG INHALER INH SCH ×2 (08:50→21:00)
[2016-08-04] MEDS: SODIUM CHLORIDE 0.9% FLUSH 5 ML FLUSH FLUSH SCH ×2 (08:50→22:54)
[2016-08-04] MEDS: guaiFENesin E.R. 600 MG TAB PO SCH ×2 (08:51→22:54)
--- NOTE | 2016-08-04 10:19 | EKG ---
Date Performed: 08/03/2016 Time Performed: 15:17:22 PTAGE: 81 years EKG: Sinus arrhythmia with PVC(s) Left axis deviation RBBB with left anterior fascicular block A nterolateral ST elevation - possible early repolarization Abnormal ECG Compared to prior tracing no s ignificant change PREVIOUS TRACING : 07/27/2016 08.46 DOCTOR: Alex Jacob Interpretating Date/Time 08/04/2016 10:16:56
--- NOTE | 2016-08-04 10:47 | MH ---
cc: CODIE FRANCIS M.D. DATE OF ADMISSION: 08/03/2016 CHIEF COMPLAINT Increasing shortness of breath, cough. HISTORY OF PRESENT ILLNESS Mr. Gray is an 81-year-old white male with a significant COPD history who had been in pretty stable state until about June. In June he developed a recurrence with fever, sputum and cough and was started on Levaquin immediately along with a steroid taper and improved. He states he was pretty good through the end of June beginning of July until he again became ill, but he states that this event is unlike his normal COPD exacerbation. He had been to the hospital on Thursday and had a chest x-ray that showed a right lower lobe infiltrate, came back two days later with worsening symptoms, had a CTA that was negative for a pulmonary embolus and the infiltrate seemed to have been gone. He was on Levaquin at that time. He went home on oral steroids, was seen back in our office three days later and was doing fair, continued on the steroids but then felt worse by Thursday with increasing shortness of breath so he became back to the emergency room. Yesterday his O2 sats were 88% at rest in the emergency room and therefore admitted him for IV steroids and further monitoring. He states he is feeling better today than he has felt in the past couple of weeks. Also of interest his has been ill and was diagnosed with influenza about a week after he started with his symptoms. So in retrospect I am thinking he may have had influenza that was not tested at the initial hospital visit. His influenza testing this time was negative. It does not look like he was tested for flu during his other two ER visits. PAST MEDICAL HISTORY 1. Adenomatous colon polyps. 2. Hypothyroidism. 3. Type 2 diabetes. 4. Hyperlipidemia. 5. 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 6. COPD. 7. History of skin cancer. PAST SURGICAL HISTORY 1. Appendectomy. 2. Surgery on his finger. SOCIAL HISTORY He is for the past 50+ years. He is currently retired, last worked in 1996. He has a college education. He has about one week per day. He has a [id number]-[id number] history of smoking, quit in the early . No illicit drug use. MEDICATIONS 1. DuoNeb q.i.d., which started four days ago in place of his Spiriva. 2. Symbicort, two puffs b.i.d. 3. Prednisone 10 mg, two tablets daily, started on 07/07/2016. 4. Losartan 25 mg daily. 5. Aspirin 81 mg daily. 6. Garlic. 7. Glipizide 10 mg in the morning, 5 mg at night. 8. Nexium 20 mg daily. 9. Niacin 500 mg, two tablets daily. 10.Normally he was on Spiriva daily when he was controlled on ProAir p.r.n. shortness of breath. ALLERGIES ALLERGY TO PENICILLIN WHICH CAUSES ITCHING AND SWELLING. FAMILY HISTORY He has a brother who had AR, first one at age 42. Dad had a first AR at 35 and at 52 of heart disease. Mom had congestive heart failure and at 94. VACCINES 1. Pneumovax-23 in March 2005. 2. Prevnar April 2014. 3. He has had yearly flu vaccines and it looks like he had his in March 2016. 4. Tetanus vaccine was given in 2010. 5. Shingles vaccine in 2007. REVIEW OF SYSTEMS He denies any chest discomfort but does have cough and shortness of breath, just not quite feeling right in his chest. He feels as though he has sputum but is unable to get it up. No fever, sweats or chills in the past week. No nausea, vomiting, no diarrhea, no hematochezia, no melena, no constipation, no abdominal pain. No lower extremity edema. No changes in his skin, no rashes. He does not have a sore throat other than just a little slight with his cough. No nasal congestion. No ear pain. He is feeling otherwise fairly well. He notes up until a couple of weeks ago he was working out at the gym, taking 100 stairs per day, and not feeling it in his lungs, just mostly in his legs. He otherwise continues with his pulmonary rehab, other than this past week when it has been more difficult, although he has still done it. REmainder of ROS is negative. PHYSICAL EXAMINATION VITAL SIGNS: He has been afebrile since admission last evening. His heart rate has been in the 90s down into the 80s this morning, respiratory rate 18-20. O2 sat was 88% on room air yesterday, up into the high 90s on 2 liters nasal cannula. This morning he is on room air at 95% standing up in the room. Blood pressure 101/68. GENERAL: In general he is an elderly white male in no acute distress walking about his room and able to speak in full sentences without difficulty. HEENT: Pupils are equal and reactive. Oropharynx appears benign. NECK: Supple without lymphadenopathy. No supraclavicular adenopathy. No accessory muscle use. CARDIOVASCULAR: Distant with occasional premature beats but mostly regular. No murmurs. LUNGS: Diffusely decreased breath sounds, slight coarse breath sounds throughout bilaterally posteriorly and anteriorly without egophony. ABDOMEN: Soft and nontender. Normal bowel sounds. EXTREMITIES: 2+ pulses. No edema. No skin lesions. 1+ radial and dorsalis pedis pulses. He is able to walk about the room on room air without much difficulty this morning. He did receive IV steroids last evening. ASSESSMENT AND PLAN 1. COPD with exacerbation. He received 125 mg of Solu-Medrol in the emergency room last night, now on 60 mg IV b.i.d., DuoNeb q.4h. Scheduled. We are trying to get a sputum sample. I placed him on guaifenesin to help loosen up any sputum. His white count was slightly elevated at 13. Chest x-ray was negative. Will check his oxygen walk test today and see how he does. Likely will need to continue him on a sower taper of his steroids. Suspect he may have had influenza initially since his was also positive and may be taking longer to improve with the COPD. 2. Type 2 diabetes. Will check his blood sugars twice a day, monitor his diet and continue his medications. He has had proteinuria and is on losartan 25 mg per day for that, not for hypertension. 3. Hyperlipidemia. He has not been on a statin as he has been controlled with diet and niacin. MD LEXY Monaco/KEIRY /10:07 AM /10:25 AM YESENIA
[2016-08-04] MEDS: ENOXAPARIN SODIUM 40 MG/0.4 ML SYRINGE SQ SCH (17:00)
[2016-08-04] MEDS: glipiZIDE 5 MG TAB PO SCH (22:54)
[2016-08-05] VITALS: BP 112/70; PULSE 78; RESP 20; TEMP 97.6; O2SAT 95
[2016-08-05 04:00] VITALS: BP 107/69; PULSE 66; RESP 20; TEMP 96.9; O2SAT 95
[2016-08-05 07:00] VITALS: PULSE 81
[2016-08-05 08:00] VITALS: BP 124/69; PULSE 65; RESP 20; TEMP 96.9; O2SAT 95
[2016-08-05] MEDS: LOSARTAN 25 MG TAB PO SCH (08:34)
[2016-08-05] MEDS: BUDESONIDE-FORMOTEROL 80/4.5 MCG INHALER INH SCH (08:34)
[2016-08-05] MEDS: NIACIN 100 MG TAB PO SCH (08:34)
[2016-08-05] MEDS: guaiFENesin E.R. 600 MG TAB PO SCH (08:34)
[2016-08-05] MEDS: glipiZIDE 10 MG TAB PO SCH (08:34)
[2016-08-05] MEDS: SODIUM CHLORIDE 0.9% FLUSH 5 ML FLUSH FLUSH SCH (08:35)
[2016-08-05] MEDS: methylPREDNISolone SOD SUCC 125 MG/2 ML VIAL IV PUSH SCH (08:35)
[2016-08-05] MEDS ORDERED: AZIT500T2 PO (08:57)
[2016-08-05] MEDS ORDERED: MUCI600T PO (08:57)
[2016-08-05] MEDS ORDERED: IPRASOL NEB (08:57)
[2016-08-05] MEDS ORDERED: PRED10 PO (08:57)
--- NOTE | 2016-08-05 09:00 | HHI.DS ---
Discharge Summary Admission Date Aug 03, 2016 at 16:33 Discharge Date: Aug 05, 2016 Admitting Diagnosis COPD exacerbation Consultants none Procedures none Brief History 81 yo WM with >2 week history of SOB, cough, just not feeling right not responding to outpatient therapy. O2 sat of 88% at rest in the ED on room air. CBC/BMP: 08/03/16 1510 08/03/16 1510 Significant Findings Laboratory Tests Test 08/03/16 15:10 White Blood Count 13.1 TH/MM3 (4.0-11.0) Red Blood Count 4.29 MIL/MM3 (4.50-5.90) Neutrophils (%) (Auto) 75.4 % (16.0-70.0) Monocytes (%) (Auto) 8.1 % (0.0-8.0) Basophils (%) (Auto) 2.6 % (0.0-2.0) Neutrophils # (Auto) 9.9 TH/MM3 (1.8-7.7) Monocytes # (Auto) 1.1 TH/MM3 (0-0.9) Basophils # (Auto) 0.3 TH/MM3 (0-0.2) Blood Urea Nitrogen 30 MG/DL (7-18) Estimat Glomerular Filtration 58 ML/MIN (>89) Rate Random Glucose 196 MG/DL (74-106) Aspartate Amino Transf 14 U/L (15-37) (AST/SGOT) Total Creatine Kinase 31 U/L (39-308) Troponin I LESS THAN 0.02 NG/ML (0.02-0.05) Albumin 3.1 GM/DL (3.4-5.0) Imaging CXR negative PE at Discharge Gen: Thin, elderly WM, no distress sitting up eating breakfast. CV: RRR, distant, no murmur Lungs: mild moist BS, clears with cough, upper airway sounds, diffusely diminished. EXt: no edema, no calf tenderness Hospital Course Pt admitted on IV steroids, zithromax, duoneb and showed improvement. Walk test wnl day prior to discharge and pt feeling better. Had some sputum production last PM Pt Condition on Discharge: Good Discharge Disposition: Discharge Home Discharge Instructions DIET: Follow Instructions for: Diabetic Diet Activities you can perform: Regular-No Restrictions Brooklyn Cheatham MD Aug 05, 2016 09:00
== END 2016-08-05 09:57 | disposition home or self-care (01) | DRG 192 ==
LOC: PHED 14:55 → PHEDA 16:31 → OBSVTOIN 16:33 → PH3A 19:34
PROVIDERS: ADMIT Family Medicine; ATTEND Family Medicine
DX: J44.1 Chronic obstructive pulmonary disease with (acute) exacerbation (principal); E11.9 Type 2 diabetes mellitus without complications; I10 Essential (primary) hypertension; E03.9 Hypothyroidism, unspecified; E78.5 Hyperlipidemia, unspecified; I25.2 Old myocardial infarction; Z87.891 Personal history of nicotine dependence; Z79.84 Long term (current) use of oral hypoglycemic drugs
CPT/HCPCS: 71010; 80053; 82550; 82948; 83880; 84484; 85025; 85610; 85730; 87040; 87070; 87102; 87205; 87206; 87804; 93005; 94620; 94640; 94664; 96374; J0456; J1650; J2930; J7050

== ENCOUNTER → 2016-10-07 | Outpatient (CLI) | payer MEDICARE, BC ==
[~2016-10-07] MED LIST changes: +AZIT500T2 PO; +IPRASOL NEB; -LEVA750T PO; +MUCI600T PO; +PRED10 PO; -PRED20 PO; -SPIRCAP INH
--- NOTE | 2016-10-15 11:40 | RSPPFT ---
DATE OF PROCEDURE: 10/07/16 COMMENTS: VOLUMES DYNAMIC: FVC normal; FEV1 mildly reduced. STATIC: TLC, RV and FRC normal. FLOWS: FEV1% moderately reduced; FEF 25-75 severely reduced. DIFFUSION: Moderately reduced. FLOW VOLUME LOOP: Pattern of variable intrathoracic airways obstruction. IMPRESSION: Mild obstructive ventilatory defect with a moderate reduction in diffusion and increased airways resistance. There was no improvement post-bronchodilator.
== END ==
LOC: PHRSP 07:24
PROVIDERS: ATTEND Internal Medicine
DX: J44.9 Chronic obstructive pulmonary disease, unspecified (principal)
CPT/HCPCS: 94060; 94620; 94726; 94729

== ENCOUNTER 2017-03-15 10:30 | Emergency (ER) | payer MEDICARE, BC ==
[~2017-03-15] VITALS: Ht 180.3 cm; Wt 71.0 kg
[2017-03-15 10:33] VITALS: BP 114/53; PULSE 79; RESP 22; TEMP 97.8; O2SAT 94
[2017-03-15] MEDS ORDERED: CALC0.009 TOPICAL (10:58)
[2017-03-15] MEDS ORDERED: GARL1000 (10:58)
[2017-03-15] MEDS ORDERED: CENTCHW4 CHEW (10:58)
[2017-03-15] MEDS ORDERED: GLUC15009 PO (10:58)
[2017-03-15] MEDS ORDERED: XARE15TA PO (10:58)
[2017-03-15] MEDS ORDERED: NEXI20CA PO (10:58)
[2017-03-15] MEDS ORDERED: NIAC500T5 PO (10:58)
[2017-03-15] MEDS ORDERED: FISHCAP4 PO (10:58)
[2017-03-15] MEDS ORDERED: CLOB0.055 TOPICAL (10:58)
[2017-03-15] MEDS ORDERED: FERR325C PO (10:58)
[2017-03-15] MEDS ORDERED: FLUO0.013 TOPICAL (10:58)
[2017-03-15] MEDS ORDERED: SPIRCAP INH (10:58)
--- NOTE | 2017-03-15 11:29 | PD ---
HPI Chief Complaint: Cold / Flu Symptoms Time Seen by Provider: 11:24 Travel History International Travel<30 days: No Contact w/Intl Traveler<30days: No Traveled to known affect area: No History of Present Illness HPI Patient presents with complaints of cough and congestion for approximately 2-3 weeks. History of COPD. States that he saw his primary care provider was given a Z-Ralph which he conveyed to the previous is not responded well to. Symptoms did not improve. Patient returned to his primary care provider who gave him some Levaquin for 7 days. He was not started on a steroid taper at that time. Patient did improve however he was traveling to urinate. It felt like he overdid himself some. Denies nausea vomiting diarrhea or fever at this time. Denies any new chest pain urinary or bowel symptoms. Mild dyspnea on exertion. No history of heart failure. PFSH Past Medical History Hx Anticoagulant Therapy: Yes Asthma: Yes Heart Rhythm Problems: No Cardiovascular Problems: Yes High Cholesterol: No Congestive Heart Failure: No COPD: Yes (no home oxygen) Coronary Artery Disease: Yes Diabetes: Yes Patient Takes Glucophage: Yes Diminished Hearing: No Deep Vein Thrombosis: Yes Endocrine: Yes Gastrointestinal Disorders: Yes GERD: Yes (occ) Genitourinary: No Hypertension: Yes Musculoskeletal: Yes (hip pain) Neurologic: No Psychiatric: No Respiratory: Yes (COPD) Integumentary: Yes (PSORIASIS) Immunizations Current: Yes Myocardial Infarction: Yes (1974) Pneumonia: Yes Tetanus Vaccination: < 5 Years Influenza Vaccination: Yes Past Surgical History Appendectomy: Yes Other Surgery: Yes (RT THUMB TRIGGER FINGER REPAIR) Social History Alcohol Use: No Tobacco Use: No Substance Use: No Allergies-Medications (Allergen,Severity, Reaction): Coded Allergies: penicillin G (Unverified Allergy, Severe, swelling , 03/15/17) Reported Meds & Prescriptions Reported Meds & Active Scripts Active Duoneb (Ipratropium-Albuterol Neb) 0.5-2.5 Mg/3 Ml Neb 1 Ampule NEB Q4HR NEB Reported Calcipotriene Topical (Calcipotriene) 0.005% Cream 1 Applic TOPICAL BID Clobetasol Topical (Clobetasol Propionate) 0.05% Cream 1 Applic TOPICAL BID Fluocinolone Topical (Fluocinolone Acetonide) 0.01% Cream 1 Applic TOPICAL DAILY Xarelto (Rivaroxaban) 15 Mg Tab 15 Mg PO Q12HR Iron (Ferrous Sulfate) 325 Mg Cap 325 Mg PO BIDPC Spiriva Handihaler (Tiotropium Inh) 18 Mcg Cap 18 Mcg INH DAILY 1 capsule = 18 mcg Fish Oil + D3 (Fish Oil-Cholecalciferol) 1,200-1,000 Mg-Unit Cap 1 Cap PO DAILY Garlic Oil 1000 (Garlic) 1,000 Mg Cap Nexium (Esomeprazole DR) 20 Mg Capdr 20 Mg PO DAILY Glucosamine 1,500 Mg Tab 1,500 Mg PO BID Centrum (Multiple Vitamins W/ Minerals) 1 Chew 1 Tab CHEW DAILY Niacin 500 Mg Tab 500 Mg PO BID Symbicort Inh (Budesonide/Formoterol Fumarate) 80-4.5 Mcg/Act Aero 2 Puff INH Q12HR Glipizide 10 Mg Tab 10 Mg PO DAILY Take 30 minutes before a meal Glipizide 5 Mg Tab 5 Mg PO HS Take 30 minutes before a meal Review of Systems General / Constitutional: No: Fever Eyes: No: Visual changes HENT: No: Headaches Cardiovascular: No: Chest Pain or Discomfort Respiratory: Positive: Cough, Shortness of Breath Gastrointestinal: No: Abdominal Pain Genitourinary: No: Dysuria Musculoskeletal: No: Pain Skin: No Rash Neurologic: No: Weakness Psychiatric: No: Depression Endocrine: No: Polydipsia Hematologic/Lymphatic: No: Easy Bruising Physical Exam Narrative GENERAL: Well-nourished, well-developed patient. SKIN: Focused skin assessment warm/dry. HEAD: Normocephalic. EYES: No scleral icterus. No injection or drainage. NECK: Supple, trachea midline. No JVD or lymphadenopathy. CARDIOVASCULAR: Regular rate and rhythm without murmurs, gallops, or rubs. RESPIRATORY: Decreased breath sounds in all paula. Coarse with end expiratory wheeze left lower lobe. GASTROINTESTINAL: Abdomen soft, non-tender, nondistended. MUSCULOSKELETAL: No cyanosis, or edema. BACK: Nontender without obvious deformity. No CVA tenderness. Data Data Last Documented VS Vital Signs Date Time Temp Pulse Resp B/P (MAP) Pulse Ox O2 Delivery O2 Flow Rate FiO2 03/15/17 12:19 76 18 118/62 (80) 93 Room Air 03/15/17 10:33 97.8 Orders Orders Complete Blood Count With Diff (03/15/17 11:13) Blood Culture (03/15/17 11:13) Iv Access Insert/Monitor (03/15/17 11:13) Ecg Monitoring (03/15/17 11:13) Oxygen Administration (03/15/17 11:13) Oximetry (03/15/17 11:13) Electrocardiogram (03/15/17 11:13) Comprehensive Metabolic Panel (03/15/17 11:25) Influenzae A/B Antigen (03/15/17 11:25) Chest, Single Ap (03/15/17 11:25) Sodium Chloride 0.9% Flush (Ns Flush) (03/15/17 11:30) Methylprednisolone So Succ Inj (Solumedr (03/15/17 11:30) Levofloxacin 500 Mg Premix Inj (Levaquin (03/15/17 11:30) Labs Laboratory Tests Test 03/15/17 11:20 White Blood Count 5.9 TH/MM3 Red Blood Count 4.09 MIL/MM3 Hemoglobin 13.0 GM/DL Hematocrit 38.3 % Mean Corpuscular Volume 93.5 FL Mean Corpuscular Hemoglobin 31.7 PG Mean Corpuscular Hemoglobin Concent 33.9 % Red Cell Distribution Width 14.4 % Platelet Count 165 TH/MM3 Mean Platelet Volume 7.4 FL Neutrophils (%) (Auto) 73.4 % Lymphocytes (%) (Auto) 12.9 % Monocytes (%) (Auto) 7.6 % Eosinophils (%) (Auto) 3.3 % Basophils (%) (Auto) 2.8 % Neutrophils # (Auto) 4.3 TH/MM3 Lymphocytes # (Auto) 0.8 TH/MM3 Monocytes # (Auto) 0.4 TH/MM3 Eosinophils # (Auto) 0.2 TH/MM3 Basophils # (Auto) 0.2 TH/MM3 CBC Comment DIFF FINAL Differential Comment Blood Urea Nitrogen 19 MG/DL Creatinine 1.00 MG/DL Random Glucose 307 MG/DL Total Protein 6.5 GM/DL Albumin 2.9 GM/DL Calcium Level 8.0 MG/DL Alkaline Phosphatase 159 U/L Aspartate Amino Transf (AST/SGOT) 68 U/L Alanine Aminotransferase (ALT/SGPT) 108 U/L Total Bilirubin 0.7 MG/DL Sodium Level 136 MEQ/L Potassium Level 4.3 MEQ/L Chloride Level 101 MEQ/L Carbon Dioxide Level 28.3 MEQ/L Anion Gap 7 MEQ/L Estimat Glomerular Filtration Rate 72 ML/MIN [facility] Medical Decision Making Medical Screen Exam Complete: Yes Emergency Medical Condition: Yes Differential Diagnosis COPD exacerbation, pneumonia, bronchitis, respiratory failure Narrative Course Assessment and plan discussed with patient and at bedside. EKG revealed sinus rhythm rate of 79. Right bundle branch block. Patient received IV antibiotics and steroid. I think repeating Levaquin would be antibiotic of choice since he did respond well. Renal function is okay. Encouraged fluids. Diagnosis Primary Impression: COPD exacerbation Patient Instructions: General Instructions Additional Instructions: Rest fluids and Tylenol, encouraged to continue breathing treatments which patient has at home. Encouraged to follow-up with PCP. Encouraged to return to emergency room with any onset of new symptoms. Med/Other Pt SpecificInfo: Prescription(s) given Scripts Guaifenesin-Codeine Liq (Cheratussin AC Liq) 100-10 Mg/5 Ml Syrp 5-10 ML PO Q4H Y for COUGH AND COLD SYMPTOMS, #120 ML 0 Refills Do not exceed 6 doses/24 hrs. Prov: Kurtis Mg MD 03/15/17 Prednisone (48) 10 mg tab Dose Pack (Prednisone (48) 10 mg tab Dose Pack) 10 Mg Dspk 10 MG PO DIRECTED for Inflammation, #1 DSPK 0 Refills Prov: Kurtis Mg MD 03/15/17 Levofloxacin (Levaquin) 500 Mg Tablet 500 MG PO DAILY for Infection, #7 TAB 0 Refills Prov: Kurtis Mg MD 03/15/17 Disposition: 01 DISCHARGE HOME Condition: Good Kurtis Mg MD Mar 15, 2017 11:29
[2017-03-15 11:30] LABS: AUTOMATED NEUTROPHIL # 4.3 TH/MM3 (1.8-7.7); BASOPHIL # 0.2 TH/MM3 (0-0.2); BASOPHIL % 2.8 % (0.0-2.0); EOSINOPHIL # 0.2 TH/MM3 (0-0.4); EOSINOPHIL % 3.3 % (0.0-4.0); HEMATOCRIT 38.3 % (39.0-51.0); HEMO FLAGS DIFF FINAL; LYMPH % 12.9 % (9.0-44.0); LYMPHOCYTE # 0.8 TH/MM3 (1.0-4.8); MEAN CELL VOLUME 93.5 FL (80.0-100.0); MEAN CORPUSCULAR HEMOGLOBIN 31.7 PG (27.0-34.0); MEAN CORPUSCULAR HGB CONC 33.9 % (32.0-36.0); MONO % 7.6 % (0.0-8.0); NEUT % 73.4 % (16.0-70.0); PLATELET COUNT 165 TH/MM3 (150-450); RED BLOOD COUNT 4.09 MIL/MM3 (4.50-5.90); RED CELL DISTRIBUTION WIDTH 14.4 % (11.6-17.2); WHITE BLOOD COUNT 5.9 TH/MM3 (4.0-11.0)
[2017-03-15] MEDS ORDERED: LEVOFLOXACIN 500 MG PREMIX INJ 100 ML IV ONE (11:30)
[2017-03-15] MEDS ORDERED: methylPREDNISolone SOD SUCC 125 MG/2 ML VIAL IV PUSH ONE (11:30)
[2017-03-15] MEDS ORDERED: SODIUM CHLORIDE 0.9% FLUSH 10 ML FLUSH IVF PRN (11:30)
[2017-03-15 11:34] VITALS: O2SAT 93
[2017-03-15 11:37] LABS: CHLORIDE 101 MEQ/L (98-107); POTASSIUM 4.3 MEQ/L (3.5-5.1); SODIUM (NA) 136 MEQ/L (136-145)
[2017-03-15 11:41] LABS: ANION GAP 7 MEQ/L (5-15); BICARBONATE 28.3 MEQ/L (21.0-32.0); BLOOD UREA NITROGEN 19 MG/DL (7-18)
[2017-03-15 11:44] LABS: ALT (GPT) 108 U/L (12-78); AST (GOT) 68 U/L (15-37); GLOMERULAR FILTRATION RATE 72 ML/MIN (>89)
[2017-03-15 11:45] LABS: TOTAL BILIRUBIN ADULT 0.7 MG/DL (0.2-1.0)
[2017-03-15 11:47] LABS: ALKALINE PHOSPHATASE 159 U/L (45-117)
--- NOTE | 2017-03-15 12:01 | RADRPT ---
EXAM DATE/TIME: 03/15/2017 11:31 [facility] COMPARISON: CHEST SINGLE AP, August 03, 2016, 15:32. INDICATIONS : Cough and congestion for 3 weeks. MEDICAL HISTORY : Cardiovascular disease. Hypertension. Chronic obstructive pulmonary diabetes SURGICAL HISTORY : Appendectomy. ENCOUNTER: Initial ACUITY: 3 weeks PAIN SCORE: 6/10 LOCATION: Bilateral upper chest FINDINGS: A single view of the chest demonstrates the lungs to be symmetrically aerated without evidence of mas s, infiltrate or effusion. Stable chronic interstitial type changes. The cardiomediastinal contours a re unremarkable. Osseous structures are intact. CONCLUSION: No acute disease. No significant change has occurred. Og Stewart MD on March 15, 2017 at 11:58 Board Certified Radiologist. This report was verified electronically.
--- NOTE | 2017-03-15 12:05 | EKG ---
Date Performed: 03/15/2017 Time Performed: 11:27:14 PTAGE: 81 years EKG: Sinus rhythm MARKED RIGHT AXIS DEVIATION RIGHT BUNDLE BRANCH BLOCK ABNORMAL ECG No significant change from prior electrocardiogram. PREVIOUS TRACING : 08/03/2016 15.17 DOCTOR: Danny Trevino Interpretating Date/Time 03/15/2017 12:04:08
[2017-03-15 12:19] VITALS: BP 118/62; PULSE 76; RESP 18; O2SAT 93
[2017-03-15] MEDS ORDERED: CHERSYP2 PO (12:28)
[2017-03-15] MEDS ORDERED: LEVA500T20 PO (12:28)
[2017-03-15] MEDS ORDERED: PRED10PA2 PO (12:28)
[2017-03-15 12:47] VITALS: BP 119/59; PULSE 75; RESP 16; O2SAT 95
== END 2017-03-15 13:00 | disposition home or self-care (01) ==
LOC: PHED 10:30
DX: J44.1 Chronic obstructive pulmonary disease with (acute) exacerbation (principal); J45.909 Unspecified asthma, uncomplicated; R05 Cough; I25.10 Atherosclerotic heart disease of native coronary artery without angina pectoris; E11.9 Type 2 diabetes mellitus without complications; Z86.718 Personal history of other venous thrombosis and embolism; Z79.01 Long term (current) use of anticoagulants; K21.9 Gastro-esophageal reflux disease without esophagitis; I10 Essential (primary) hypertension; Z79.84 Long term (current) use of oral hypoglycemic drugs; Z79.899 Other long term (current) drug therapy; R94.31 Abnormal electrocardiogram [ECG] [EKG]
CPT/HCPCS: 71010; 80053; 85025; 87040; 87804; 93005; 96374; 96375; 99285; J1956; J2930

== ENCOUNTER 2017-08-23 10:00 | Emergency (ER) | payer MEDICARE ==
[~2017-08-23] VITALS: Ht 180.3 cm; Wt 71.0 kg
[~2017-08-23 10:00] MED LIST changes: -AZIT500T2 PO; +CALC0.009 TOPICAL; +CENTCHW4 CHEW; +CHERSYP2 PO; +CLOB0.055 TOPICAL; +FERR325C PO; +FISHCAP4 PO; +FLUO0.013 TOPICAL; +GARL1000; +GLUC15009 PO; +LEVA500T33 PO; -LOSA25TA PO; -MUCI600T PO; +NEXI20CA PO; +NIAC500T5 PO; -NIAC50TA4 PO; -PRED10 PO; +PRED10PA2 PO; +SPIRCAP INH; -VENTAER INH; +XARE15TA PO
[2017-08-23 10:06] VITALS: BP 112/57; PULSE 80; RESP 16; TEMP 97.5; O2SAT 96
[2017-08-23 10:39] VITALS: BP 132/70; PULSE 77; RESP 18; O2SAT 97
[2017-08-23] MEDS ORDERED: SODIUM CHLORIDE 0.9% FLUSH 10 ML FLUSH IVF PRN (10:45)
[2017-08-23] MEDS ORDERED: SODIUM CHLOR 0.9% 1000 ML INJ 1,000 ML IV ONE (10:45)
[2017-08-23] MEDS: RESP: ALBUTEROL 2.5 MG/IPRATROPIUM 0.5 MG NEB (SCH) INH ×2 (10:52→10:53)
[2017-08-23 10:55] VITALS: O2SAT 97
[2017-08-23 11:05] LABS: AUTOMATED NEUTROPHIL # 2.7 TH/MM3 (1.8-7.7); BASOPHIL % 0.5 % (0.0-2.0); EOSINOPHIL % 0.3 % (0.0-4.0); HEMOGLOBIN 12.3 GM/DL (13.0-17.0); LYMPHOCYTE # 0.4 TH/MM3 (1.0-4.8); MEAN CELL VOLUME 94.7 FL (80.0-100.0); MEAN CORPUSCULAR HEMOGLOBIN 31.5 PG (27.0-34.0); MEAN CORPUSCULAR HGB CONC 33.3 % (32.0-36.0); MEAN PLATELET VOLUME 7.3 FL (7.0-11.0); MONO % 12.4 % (0.0-8.0); MONOCYTE # 0.5 TH/MM3 (0-0.9); NEUT % 74.8 % (16.0-70.0); PLATELET COUNT 130 TH/MM3 (150-450); RED BLOOD COUNT 3.91 MIL/MM3 (4.50-5.90); RED CELL DISTRIBUTION WIDTH 13.3 % (11.6-17.2); WHITE BLOOD COUNT 3.6 TH/MM3 (4.0-11.0)
[2017-08-23 11:20] LABS: CALCIUM 8.8 MG/DL (8.5-10.1)
[2017-08-23 11:21] LABS: BICARBONATE 27.9 MEQ/L (21.0-32.0)
[2017-08-23 11:22] LABS: INTERNATIONAL NORMALIZED RATIO 1.2 RATIO; PROTHROMBIN TIME - PATIENT 11.7 SEC (9.8-11.6)
--- NOTE | 2017-08-23 11:28 | RADRPT ---
EXAM DATE/TIME: 08/23/2017 10:45 [facility] COMPARISON: CT PULMONARY ANGIOGRAM, July 29, 2016, 12:05. CHEST SINGLE AP, March 15, 2017, 11:31. INDICATIONS : Cough, short of breath MEDICAL HISTORY : Diabetes mellitus type II. Chronic obstructive pulmonary disease. SURGICAL HISTORY : None. ENCOUNTER: Initial ACUITY: 3 days PAIN SCORE: 0/10 LOCATION: Bilateral chest FINDINGS: Emphysematous changes are again noted bilaterally. Minimal fibrotic scarring and/or discoid atelectas is is noted within the left lung base. No focal alveolar consolidation is noted. The heart is normal. The pulmonary vascular pattern is normal. CONCLUSION: No acute focal pulmonary or pulmonary vascular congestion. Stable emphysematous changes. Left basilar fibrotic scarring and/or discoid atelectasis. Tanvir Blackburn MD on August 23, 2017 at 11:25 Board Certified Radiologist. This report was verified electronically.
--- NOTE | 2017-08-23 11:29 | PD ---
HPI Chief Complaint: Respiratory Symptoms Time Seen by Provider: 10:32 Travel History International Travel<30 days: No Contact w/Intl Traveler<30days: No Traveled to known affect area: No History of Present Illness HPI The patient is 82 years old. He arrives with cough runny nose and shortness of breath. He reports that multiple times similar prior episodes ended up as pneumonia and a hospital admission or outpatient treatment with steroids. He has no chest pain and no fever. Pt has hx COPD however did not use at home nebs. Duration has been about 2 days. The patient's has had similar symptoms. PFSH Past Medical History Hx Anticoagulant Therapy: Yes Asthma: Yes Heart Rhythm Problems: No Cardiovascular Problems: Yes High Cholesterol: No Congestive Heart Failure: No COPD: Yes (no home oxygen) Coronary Artery Disease: Yes Diabetes: Yes Patient Takes Glucophage: Yes Diminished Hearing: No Deep Vein Thrombosis: Yes Endocrine: Yes Gastrointestinal Disorders: Yes GERD: Yes (occ) Genitourinary: No Hypertension: Yes Musculoskeletal: Yes (hip pain) Neurologic: No Psychiatric: No Respiratory: Yes (COPD) Integumentary: Yes (PSORIASIS) Immunizations Current: Yes Myocardial Infarction: Yes (1973) Pneumonia: Yes Influenza Vaccination: Yes Past Surgical History Appendectomy: Yes Other Surgery: Yes (RT THUMB TRIGGER FINGER REPAIR) Social History Alcohol Use: No Tobacco Use: No Substance Use: No Allergies-Medications (Allergen,Severity, Reaction): Coded Allergies: penicillin G (Unverified Allergy, Severe, swelling , 08/23/17) Reported Meds & Prescriptions Reported Meds & Active Scripts Active Azithromycin 250 Mg Tab 250 Mg PO DIRECTED Take 2 tabs (500 mg) on day 1 then 1 tab daily x 4 days. Medrol Dosepak (Methylprednisolone) 4 Mg Dspk 4 Mg PO DIRECTED Per Pharmacist direction Cheratussin AC Liq (Guaifenesin-Codeine Liq) 100-10 Mg/5 Ml Syrp 5-10 Ml PO Q4H PRN Do not exceed 6 doses/24 hrs. Prednisone (48) 10 mg tab Dose Pack (Prednisone) 10 Mg Dspk 10 Mg PO DIRECTED Levaquin (Levofloxacin) 500 Mg Tablet 500 Mg PO DAILY Duoneb (Ipratropium-Albuterol Neb) 0.5-2.5 Mg/3 Ml Neb 1 Ampule NEB Q4HR NEB Reported Calcipotriene Topical (Calcipotriene) 0.005% Cream 1 Applic TOPICAL BID Clobetasol Topical (Clobetasol Propionate) 0.05% Cream 1 Applic TOPICAL BID Fluocinolone Topical (Fluocinolone Acetonide) 0.01% Cream 1 Applic TOPICAL DAILY Xarelto (Rivaroxaban) 15 Mg Tab 15 Mg PO Q12HR Iron (Ferrous Sulfate) 325 Mg Cap 325 Mg PO BIDPC Spiriva Handihaler (Tiotropium Inh) 18 Mcg Cap 18 Mcg INH DAILY 1 capsule = 18 mcg Fish Oil + D3 (Fish Oil-Cholecalciferol) 1,200-1,000 Mg-Unit Cap 1 Cap PO DAILY Garlic Oil 1000 (Garlic) 1,000 Mg Cap Nexium (Esomeprazole DR) 20 Mg Capdr 20 Mg PO DAILY Glucosamine 1,500 Mg Tab 1,500 Mg PO BID Centrum (Multiple Vitamins W/ Minerals) 1 Chew 1 Tab CHEW DAILY Niacin 500 Mg Tab 500 Mg PO BID Symbicort Inh (Budesonide/Formoterol Fumarate) 80-4.5 Mcg/Act Aero 2 Puff INH Q12HR Glipizide 10 Mg Tab 10 Mg PO DAILY Take 30 minutes before a meal Glipizide 5 Mg Tab 5 Mg PO HS Take 30 minutes before a meal Review of Systems Except as stated in HPI: all other systems reviewed are Neg General / Constitutional: No: Fever Cardiovascular: No: Chest Pain or Discomfort Respiratory: Positive: Cough, Shortness of Breath Physical Exam Narrative GENERAL: 82 yo M, speaking in full sentences, well-nourished well-developed SKIN: Warm and dry. HEAD: Atraumatic. Normocephalic. EYES: Pupils equal and round. No scleral icterus. No injection or drainage. ENT: No nasal bleeding or discharge. Mucous membranes pink and moist. NECK: Trachea midline. No JVD. CARDIOVASCULAR: Heart rate about 100. RESPIRATORY: Wheezing is present bilaterally. Minimal tachypnea. No accessory muscle use. Speaking sentences GASTROINTESTINAL: Abdomen soft, non-tender, nondistended. Hepatic and splenic margins not palpable. MUSCULOSKELETAL: Extremities without clubbing, cyanosis, or edema. No obvious deformities. NEUROLOGICAL: Awake and alert. No obvious cranial nerve deficits. Motor grossly within normal limits. Five out of 5 muscle strength in the arms and legs. Normal speech. PSYCHIATRIC: Appropriate mood and affect; insight and judgment normal. Data Data Last Documented VS Vital Signs Date Time Temp Pulse Resp B/P (MAP) Pulse Ox O2 Delivery O2 Flow Rate FiO2 08/23/17 11:49 78 20 135/78 (97) 98 08/23/17 10:55 21 08/23/17 10:39 Room Air 08/23/17 10:06 97.5 Orders Orders Complete Blood Count With Diff (08/23/17 10:36) Basic Metabolic Panel (Bmp) (08/23/17 10:36) Act Partial Throm Time (Ptt) (08/23/17 10:36) Prothrombin Time / Inr (Pt) (08/23/17 10:36) Influenzae A/B Antigen (08/23/17 10:36) Iv Access Insert/Monitor (08/23/17 10:36) Ecg Monitoring (08/23/17 10:36) Oximetry (08/23/17 10:36) Oxygen Administration (08/23/17 10:36) Chest, Single Ap (08/23/17 10:36) Sodium Chloride 0.9% Flush (Ns Flush) (08/23/17 10:45) Albuterol-Ipratropium Neb (Duoneb Neb) (08/23/17 10:45) Sodium Chlor 0.9% 1000 Ml Inj (Ns 1000 M (08/23/17 10:45) Ed Discharge Order (08/23/17 11:43) Labs Laboratory Tests Test 08/23/17 10:50 White Blood Count 3.6 TH/MM3 Red Blood Count 3.91 MIL/MM3 Hemoglobin 12.3 GM/DL Hematocrit 37.0 % Mean Corpuscular Volume 94.7 FL Mean Corpuscular Hemoglobin 31.5 PG Mean Corpuscular Hemoglobin Concent 33.3 % Red Cell Distribution Width 13.3 % Platelet Count 130 TH/MM3 Mean Platelet Volume 7.3 FL Neutrophils (%) (Auto) 74.8 % Lymphocytes (%) (Auto) 12.0 % Monocytes (%) (Auto) 12.4 % Eosinophils (%) (Auto) 0.3 % Basophils (%) (Auto) 0.5 % Neutrophils # (Auto) 2.7 TH/MM3 Lymphocytes # (Auto) 0.4 TH/MM3 Monocytes # (Auto) 0.5 TH/MM3 Eosinophils # (Auto) 0.0 TH/MM3 Basophils # (Auto) 0.0 TH/MM3 CBC Comment DIFF FINAL Differential Comment Prothrombin Time 11.7 SEC Prothromb Time International Ratio 1.2 RATIO Activated Partial Thromboplast Time 32.7 SEC Blood Urea Nitrogen 17 MG/DL Creatinine 1.00 MG/DL Random Glucose 158 MG/DL Calcium Level 8.8 MG/DL Sodium Level 140 MEQ/L Potassium Level 4.2 MEQ/L Chloride Level 104 MEQ/L Carbon Dioxide Level 27.9 MEQ/L Anion Gap 8 MEQ/L Estimat Glomerular Filtration Rate 71 ML/MIN MDM Medical Decision Making Medical Screen Exam Complete: Yes Emergency Medical Condition: Yes Medical Record Reviewed: Yes Differential Diagnosis COPD, pneumothorax, sepsis, influenza Narrative Course Patient received breathing treatments here. He ambulated throughout the ER without difficulty. His workup is slightly concerning because there is a leukocytosis about 3.7. In the absence of fever or suggestion of sepsis otherwise the patient will be discharged with prescription as below. Diagnosis Primary Impression: COPD exacerbation Additional Impression: Bronchitis Referrals: Primary Care Physician call for appointment Med/Other Pt SpecificInfo: Prescription(s) given Scripts Azithromycin (Azithromycin) 250 Mg Tab 250 MG PO DIRECTED for Infection, #6 TAB 0 Refills Take 2 tabs (500 mg) on day 1 then 1 tab daily x 4 days. Prov: Tyler Barreto MD 08/23/17 Methylprednisolone Dosepak (Medrol Dosepak) 4 Mg Dspk 4 MG PO DIRECTED, #1 DSPK 0 Refills Per Pharmacist direction Prov: Tyler Barreto MD 08/23/17 Disposition: 01 DISCHARGE HOME Condition: Stable Tyler Barreto MD Aug 23, 2017 11:29
[2017-08-23] MEDS ORDERED: MEDR4PAK PO (11:43)
[2017-08-23] MEDS ORDERED: AZIT250T3 PO (11:43)
[2017-08-23 11:49] VITALS: BP 135/78
== END 2017-08-23 11:52 | disposition home or self-care (01) ==
LOC: PHED 10:00
DX: J44.1 Chronic obstructive pulmonary disease with (acute) exacerbation (principal); D72.829 Elevated white blood cell count, unspecified; J45.909 Unspecified asthma, uncomplicated; I25.10 Atherosclerotic heart disease of native coronary artery without angina pectoris; E11.9 Type 2 diabetes mellitus without complications; I10 Essential (primary) hypertension; K21.9 Gastro-esophageal reflux disease without esophagitis; I25.2 Old myocardial infarction; Z86.718 Personal history of other venous thrombosis and embolism
CPT/HCPCS: 71045; 80048; 85025; 85610; 85730; 87804; 94640; 94664; 96360; 99284; J7030